=== PATIENT | male | born 1935 | race Caucasian/White ===

== ENCOUNTER → 2017-04-28 | Outpatient (CLI) | payer OTHER ==
[~2017-04-28] MED LIST: ADVAIR 250-501 EACH IH; ALBUTEROL MININEB NEB; ALBUTEROL2.5 MG/0.5 IH; ALL DAY ALLERGY10 M3 PO; ASPIRIN; BAYER ADVANCED500 MG PO; BAYER CHEWABLE81 MG PO; BENZONATATE200 MG PO; BROVANA15 MCG/2 M IH; BUMEX1 MG PO; BUMEX2 MG PO; CARTIA XT240 M1 PO; CENTRUM PO; CENTRUM SILVER1 EAC2 PO; CITRACAL + D CA1 TA1 PO; CITRACAL PLUS T1 TAB; COREG3.125 MG PO; CRESTOR; DILTIAZEM 24HR180 M2 PO; DILTIAZEM 24HR240 MG PO; LIPITOR PO; LIPITOR40 MG PO; LISINOPRIL10 MG PO; MULTI-VIT/MIN P1 TAB; PRILOSEC; PRILOSEC PO; PULMICORT0.5 MG/2 M IH; REQUIP2 MG PO; SPIRIVA18 MCG INH; TESSALON PERLE100 M1 PO; TYLENOL #3 PO; VIBRAMYCIN100 M1 PO
== END | disposition home or self-care (01) ==
LOC: CSSDAY 14:00
DX: D50.8 Other iron deficiency anemias (principal); J44.9 Chronic obstructive pulmonary disease, unspecified
CPT/HCPCS: 96374; Q0138